=== PATIENT | female | born 1995 | race Caucasian/White ===

== ENCOUNTER 2025-07-11 20:56 | Emergency (ER) | payer BC ==
[~2025-07-11] VITALS: Ht 160 cm; Wt 108.9 kg
[2025-07-11 21:31] LABS: BILIRUBIN Negative (Negative); BLOOD Negative (Negative); CLARITY Cloudy (Clear); COLOR Yellow (Yellow); KETONE Negative (Negative); LEUKO ESTERASE Trace (Negative); NITRITE Negative (Negative); PH 5.5 (4.5-8.0); SPECIFIC GRAVITY 1.020 (1.001-1.030); UROBILINOGEN 0.2 E.U./dl (0.0-1.0)
[2025-07-11 21:40] LABS: BACTERIA 2+
[2025-07-11 21:40] LABS: BASO # 0.1 10*3/uL (0.0-0.1); BASO % 1.0 % (0.0-1.0); EOS # 0.5 10*3/uL (0.0-0.4); EOS % 4.5 % (1.0-4.0); MEAN CELL VOLUME 82.9 fl (81.0-99.0); MEAN CORPUSCULAR HGB 25.9 pg (27.0-31.0); MEAN PLATELET VOLUME 11.8 fl (9.6-12.3); MONO # 0.9 10*3/uL (0.1-1.0); MONO % 8.5 % (3.0-9.0); NEUT # 5.7 10*3/uL (2.3-7.9); NEUT % 56.8 % (47.0-73.0); NUCLEATED RED BLOOD CELL 0.0 % (0.0-0.0); NUCLEATED RED BLOOD CELL 0.0 10*3/uL (0.0-0.0); PLATELET COUNT AUTOMATED 245 10*3/uL (130-400); RED CELL DISTRI WIDTH 15.1 % (0-14.5)
[2025-07-11 22:01] LABS: BUN 11 mg/dl (9-23)
[2025-07-11 22:02] LABS: BETA-HCG, QUANT < 3.0 mIU/mL (3-10)
== END 2025-07-11 23:17 | disposition home or self-care (01) ==
LOC: ED 20:56
PROVIDERS: Nurse Practitioner Family
DX: N93.9 Abnormal uterine and vaginal bleeding, unspecified (principal); Z32.02 Encounter for pregnancy test, result negative

== ENCOUNTER 2025-07-30 15:16 | Emergency (ER) | payer BC ==
[~2025-07-30] VITALS: Wt 115.2 kg
[2025-07-30] MEDS ORDERED: IBUPROFEN 600 MG TAB PO ONE (15:35)
== END 2025-07-30 16:23 | disposition home or self-care (01) ==
LOC: ED 15:16
DX: S93.601A Unspecified sprain of right foot, initial encounter (principal); X50.1XXA Overexertion from prolonged static or awkward postures, initial encounter; Y93.89 Activity, other specified; Y92.89 Other specified places as the place of occurrence of the external cause; Y99.8 Other external cause status

== ENCOUNTER 2025-09-01 00:32 | Emergency (ER) | payer OTHER ==
[~2025-09-01] VITALS: Ht 160 cm; Wt 110.2 kg
[2025-09-01] MEDS ORDERED: diphenhydrAMINE hydrochloride 50 MG/ML VIAL IV ONE (01:00)
[2025-09-01] MEDS ORDERED: Ondansetron Hydrochloride 4 MG/2 ML VIAL IV ONE (01:00)
[2025-09-01] MEDS ORDERED: Metoclopramide Hydrochloride 10 MG/2 ML VIAL IV ONE (01:00)
[2025-09-01 01:10] LABS: BASO # 0.1 10*3/uL (0.0-0.1); BASO % 1.0 % (0.0-1.0); EOS # 0.3 10*3/uL (0.0-0.4); EOS % 3.7 % (1.0-4.0); MEAN CELL VOLUME 83.5 fl (81.0-99.0); MEAN CORPUSCULAR HGB 26.2 pg (27.0-31.0); MEAN PLATELET VOLUME 11.9 fl (9.6-12.3); MONO # 0.8 10*3/uL (0.1-1.0); MONO % 8.9 % (3.0-9.0); NEUT # 4.6 10*3/uL (2.3-7.9); NEUT % 50.4 % (47.0-73.0); NUCLEATED RED BLOOD CELL 0.0 % (0.0-0.0); NUCLEATED RED BLOOD CELL 0.0 10*3/uL (0.0-0.0); PLATELET COUNT AUTOMATED 306 10*3/uL (130-400); RED CELL DISTRI WIDTH 14.2 % (0-14.5)
[2025-09-01 01:32] LABS: BUN 12 mg/dl (9-23); SGPT/ALT 17 U/L (5-49)
[2025-09-01 01:34] LABS: BILIRUBIN Negative (Negative); BLOOD Negative (Negative); CLARITY Clear (Clear); COLOR Yellow (Yellow); KETONE Trace (Negative); LEUKO ESTERASE Negative (Negative); NITRITE Negative (Negative); PH 5.5 (4.5-8.0); SPECIFIC GRAVITY >= 1.030 (1.001-1.030); UROBILINOGEN 0.2 E.U./dl (0.0-1.0)
[2025-09-01 01:40] LABS: BACTERIA 2+; MUCOUS 1+
[2025-09-01] MEDS ORDERED: Ondansetron4 MG PO (01:55)
[2025-09-01] MEDS ORDERED: MACROBID100 M1 PO (01:55)
== END 2025-09-01 02:12 | disposition home or self-care (01) ==
LOC: ED 00:32
PROVIDERS: Emergency Medicine
DX: N39.0 Urinary tract infection, site not specified (principal); R11.10 Vomiting, unspecified; R10.10 Upper abdominal pain, unspecified

== ENCOUNTER 2025-09-08 20:30 | Emergency (ER) | payer OTHER ==
[~2025-09-08] VITALS: Ht 160 cm; Wt 110.2 kg
[~2025-09-08 20:30] MED LIST: MACROBID100 M1 PO; Ondansetron4 MG PO
[2025-09-08] MEDS ORDERED: ATORVASTATIN CA40 M1 PO (20:40)
[2025-09-08] MEDS ORDERED: Ondansetron Hydrochloride 4 MG/2 ML VIAL IV ONE (21:05)
[2025-09-08] MEDS ORDERED: SODIUM CHLORIDE 0.9% 1,000 ML IV ONE (21:10)
[2025-09-08 21:38] LABS: BILIRUBIN Negative (Negative); BLOOD Negative (Negative); CLARITY Cloudy (Clear); COLOR Yellow (Yellow); KETONE Negative (Negative); LEUKO ESTERASE 1+ (Negative); NITRITE Negative (Negative); PH 7.0 (4.5-8.0); SPECIFIC GRAVITY 1.025 (1.001-1.030); UROBILINOGEN 1.0 E.U./dl (0.0-1.0)
[2025-09-08 21:56] LABS: BACTERIA 1+; EPITHELIAL CELLS 31-40; MUCOUS 1+; RBC 0-2 rbc/hpf (0-2); WBC 16-20 wbc/hpf (0-5)
[2025-09-08] MEDS ORDERED: Ondansetron4 MG PO (23:04)
== END 2025-09-08 23:19 | disposition home or self-care (01) ==
LOC: ED 20:30
PROVIDERS: Internal Medicine
DX: B34.9 Viral infection, unspecified (principal); I95.1 Orthostatic hypotension; Z20.822 Contact with and (suspected) exposure to COVID-19

== ENCOUNTER 2025-09-15 21:09 | Emergency (ER) | payer OTHER ==
[~2025-09-15 21:09] MED LIST changes: +ATORVASTATIN CA40 M1 PO
[2025-09-15] MEDS ORDERED: NAPROXEN250 MG PO (21:51)
== END 2025-09-15 22:00 | disposition home or self-care (01) ==
LOC: ED 21:09
DX: S90.32XA Contusion of left foot, initial encounter (principal); X58.XXXA Exposure to other specified factors, initial encounter; Y93.89 Activity, other specified; Y92.89 Other specified places as the place of occurrence of the external cause; Y99.8 Other external cause status

== ENCOUNTER 2025-09-17 01:00 | Emergency (ER) | payer OTHER ==
[~2025-09-17] VITALS: Ht 170.1 cm; Wt 113.4 kg
[~2025-09-17 01:00] MED LIST changes: +NAPROXEN250 MG PO
[2025-09-17] MEDS ORDERED: AMBIEN12.5 MG PO (01:36)
[2025-09-17] MEDS ORDERED: WEGOVY0.25 MG/0. SQ (01:37)
== END 2025-09-17 01:52 | disposition home or self-care (01) ==
LOC: ED 01:00
DX: S61.032A Puncture wound without foreign body of left thumb without damage to nail, initial encounter (principal); W45.8XXA Other foreign body or object entering through skin, initial encounter; Y93.E8 Activity, other personal hygiene; Y92.89 Other specified places as the place of occurrence of the external cause; Y99.8 Other external cause status